=== PATIENT | male | born 1985 | race Caucasian/White ===

== ENCOUNTER 2018-10-07 14:58 | Emergency (ER) | payer OTHER ==
[~2018-10-07] VITALS: Ht 180.3 cm; Wt 99.8 kg
[2018-10-07 15:31] LABS: ABSOLUTE BASOPHILS 0.1 thou/uL (0.0-0.2); ABSOLUTE EOSINOPHILS 0.2 thou/uL (0.0-0.7); ABSOLUTE LYMPHOCYTES 2.7 thou/uL (0.8-5.3); ABSOLUTE MONOCYTES 0.9 thou/uL (0.0-1.2); ABSOLUTE NEUTROPHILS 6.8 thou/uL (1.6-8.1); BASOPHILS 0.7 %; EOSINOPHILS 1.9 %; HEMATOCRIT 46.2 % (42.0-52.0); LYMPHOCYTES 25.3 %; MCHC 34.7 g/dL (28.0-37.0); MCV 89.3 fL (80.0-100.0); MONOCYTES 8.5 %; MPV 8.3 fl. (7.2-11.1); NUCLEATED RBCS 0 /100WBC; PLATELET COUNT* 236 thou/uL (150-400); POLYS 63.6 %; RBC 5.17 mil/uL (4.50-6.00); RDW-CV 12.6 % (10.5-14.5); WBC 10.8 thou/uL (4.0-11.0)
[2018-10-07 15:43] LABS: URINE BILIRUBIN NEGATIVE (Negative); URINE BLOOD NEGATIVE (Negative); URINE CLARITY CLEAR; URINE COLOR YELLOW; URINE GLUCOSE-RANDOM NEGATIVE (Negative); URINE KETONES NEGATIVE (Negative); URINE LEUKOCYTES-REFLEX NEGATIVE (Negative); URINE NITRITE-REFLEX NEGATIVE (Negative); URINE PROTEIN NEGATIVE (Negative); URINE SPECIFIC GRAVITY <= 1.005 (1.005-1.030); URINE UROBILINOGEN 0.2 E.U./dl (0.2-1.0)
[2018-10-07 15:45] LABS: CALCIUM 8.8 mg/dL (8.5-10.1); CREATININE 0.9 mg/dL (0.6-1.3); POTASSIUM 3.5 mmol/L (3.5-5.1)
[2018-10-07 15:49] LABS: ACETAMINOPHEN < 2 ug/mL (10-30); ALBUMIN 3.6 g/dL (3.4-5.0); ALCOHOL < 10 mg/dL (<10); TOTAL BILIRUBIN 0.3 mg/dL (<0.1-1.0)
[2018-10-07 15:51] LABS: AMP/METHAMP POSITIVE (Negative); BARBITURATES Negative (Negative); BENZODIAZEPINES Negative (Negative); COCAINE Negative (Negative); METHADONE Negative (Negative); OPIATES Negative (Negative); PCP Negative (Negative); THC Negative (Negative)
[2018-10-08 09:30] VITALS: BP 121/70
== END 2018-10-08 09:30 ==
LOC: M.ERS 14:58
PROVIDERS: Family Medicine
DX: R45.851 Suicidal ideations (principal)

== ENCOUNTER 2019-02-22 10:52 | Emergency (ER) | payer OTHER ==
[~2019-02-22] VITALS: Ht 180.3 cm; Wt 108.9 kg
[2019-02-22] MEDS ORDERED: NAPROSYN500 MG PO (11:23)
[2019-02-22] MEDS ORDERED: MAGIC MOUTHWASH SWISH&SPIT (11:23)
[2019-02-22] MEDS ORDERED: TYLENOL WITH CO1 TA1 PO (11:33)
[2019-02-22 11:45] VITALS: BP 130/71
[2019-02-22 11:45] LABS: INFLUENZA A ANTIGEN Negative (Negative); INFLUENZA B ANTIGEN Negative (Negative)
== END 2019-02-22 11:45 | disposition home or self-care (01) ==
LOC: M.ERS 10:52
PROVIDERS: Nurse Practitioner Family
DX: B08.4 Enteroviral vesicular stomatitis with exanthem (principal); G89.29 Other chronic pain; M54.9 Dorsalgia, unspecified; K21.9 Gastro-esophageal reflux disease without esophagitis; F90.9 Attention-deficit hyperactivity disorder, unspecified type; F32.9 Major depressive disorder, single episode, unspecified; F17.200 Nicotine dependence, unspecified, uncomplicated

== ENCOUNTER 2019-08-31 11:24 | Emergency (ER) | payer OTHER ==
[~2019-08-31] VITALS: Ht 180.3 cm; Wt 104.3 kg
[~2019-08-31 11:24] MED LIST: MAGIC MOUTHWASH SWISH&SPIT; NAPROSYN500 MG PO; TYLENOL WITH CO1 TA1 PO
[2019-08-31 11:36] VITALS: BP 130/87
[2019-08-31] MEDS ORDERED: ROBAXIN 750 MG750 MG PO (11:43)
[2019-08-31] MEDS ORDERED: NABUMETONE 750750 M1 PO (11:43)
== END 2019-08-31 12:04 | disposition home or self-care (01) ==
LOC: M.ERS 11:24
DX: M54.32 Sciatica, left side (principal); M62.830 Muscle spasm of back; K21.9 Gastro-esophageal reflux disease without esophagitis; G89.29 Other chronic pain; F17.210 Nicotine dependence, cigarettes, uncomplicated

== ENCOUNTER 2019-09-26 00:44 | Emergency (ER) | payer OTHER ==
[~2019-09-26] VITALS: Ht 154.9 cm; Wt 102.1 kg
[~2019-09-26 00:44] MED LIST changes: +NABUMETONE 750750 M1 PO; +ROBAXIN 750 MG750 MG PO
[2019-09-26 01:38] VITALS: BP 155/84
== END 2019-09-26 01:38 ==
LOC: M.ERS 00:44
DX: M54.5 Low back pain (principal); K21.9 Gastro-esophageal reflux disease without esophagitis; G89.29 Other chronic pain

== ENCOUNTER 2020-04-04 03:03 | Emergency (ER) | payer OTHER ==
[~2020-04-04] VITALS: Ht 180.3 cm; Wt 99.8 kg
[2020-04-04 04:43] VITALS: BP 158/96
== END 2020-04-04 04:57 | disposition home or self-care (01) ==
LOC: M.ERS 03:03
DX: J06.9 Acute upper respiratory infection, unspecified (principal); Z20.828 Contact with and (suspected) exposure to other viral communicable diseases; K21.9 Gastro-esophageal reflux disease without esophagitis; F32.9 Major depressive disorder, single episode, unspecified; F90.9 Attention-deficit hyperactivity disorder, unspecified type; F17.210 Nicotine dependence, cigarettes, uncomplicated